=== PATIENT | male | born 1980 | race Caucasian/White ===

== ENCOUNTER 2023-05-17 21:53 | Emergency (ER) | payer MEDICAID ==
[~2023-05-17] VITALS: Ht 175.3 cm; Wt 125.6 kg
[2023-05-17 22:00] VITALS: BP_SYST 131; PULSE 102; RESP 17; TEMP 97.3; O2SAT 98
[2023-05-17] MEDS ORDERED: MORPHINE 4 MG INJ. 4 MG/ML VIAL IM ONE (22:15)
[2023-05-18 00:20] VITALS: BP_SYST 126; PULSE 102; RESP 18; TEMP 98.9; O2SAT 99
== END 2023-05-18 00:22 ==
LOC: SED 21:53
DX: G89.29 Other chronic pain (principal); M54.50 Low back pain, unspecified; G82.20 Paraplegia, unspecified; E11.9 Type 2 diabetes mellitus without complications; I10 Essential (primary) hypertension; Z79.899 Other long term (current) drug therapy
CPT/HCPCS: 99283; 96374; J2270